=== PATIENT | female | born 1980 | race Caucasian/White ===

== ENCOUNTER 2021-01-04 21:31 | Emergency (ER) | payer MEDICAID ==
[~2021-01-04] VITALS: Ht 165.1 cm; Wt 101.2 kg
[2021-01-04 21:38] VITALS: BP 136/91
--- NOTE | 2021-01-04 21:45 | NUR ---
patient to bed 7 ambulatory with urine cup in hand for urince collection.
--- NOTE | 2021-01-04 21:50 | NUR ---
patient c/o right breast pain x5 days ago. today and yesterday the pain has increased. took tylenol for pain with some relief. denies breast feeding. patient's areola swollen, warm, and red at the site. 8/10 pain- sore and feels like pins and needles, and itchy.
[2021-01-04] MEDS ORDERED: [UNRECOGNIZED DRUG - CODE] TP (22:01)
[2021-01-04] MEDS ORDERED: DOXY-487 PO (22:01)
--- NOTE | 2021-01-04 22:06 | NUR ---
Patient discharged by Dr Harkins. Rx of Benzoyl peroxide and Doxycycline hyclate given
[2021-01-04 22:07] VITALS: BP 136/91
== END 2021-01-04 22:06 | disposition home or self-care (01) ==
LOC: MED 21:31
DX: L73.9 Follicular disorder, unspecified (principal); N64.4 Mastodynia; Z90.49 Acquired absence of other specified parts of digestive tract; Z98.890 Other specified postprocedural states; Z79.2 Long term (current) use of antibiotics; Z79.899 Other long term (current) drug therapy
CPT/HCPCS: 99283

== ENCOUNTER 2021-01-07 12:24 | Emergency (ER) | payer MEDICAID ==
[~2021-01-07] VITALS: Ht 165.1 cm; Wt 131.5 kg
[~2021-01-07 12:24] MED LIST: DOXY-487 PO; [UNRECOGNIZED DRUG - CODE] TP
[2021-01-07 12:33] VITALS: BP 161/96
--- NOTE | 2021-01-07 14:22 | NUR ---
GRACIE LUI AT BEDSIDE
[2021-01-07] MEDS ORDERED: KETOROLAC 30 MG/ML VIAL IM ONE (14:35)
[2021-01-07] MEDS ORDERED: ACET-8386 PO (14:37)
[2021-01-07] MEDS ORDERED: BACTO TP (14:37)
[2021-01-07 14:59] VITALS: BP 161/96
--- NOTE | 2021-01-07 15:02 | NUR ---
Patient discharged with v/s stable. Written and verbal after care instructions given and explained. Patient alert, oriented and verbalized understanding of instructions. Ambulatory with steady gait. All questions addressed prior to discharge. ID band removed. Patient advised to follow up with PMD. Rx of HYDROCODONE, MUPIROCIN (SENT) given. Patient educated on indication of medication including possible reaction and side effects. Opportunity to ask questions provided and answered.
--- NOTE | 2021-01-07 15:11 | NUR ---
40 Y/O F BIB SELF FROM HOME, C/O RIGHT BREAST PAIN (STABBING) WITH REDNESS & SWELLING FOR 1 WK IN AREA. PT WAS PREVIOUSLY SEEN HERE 3 DAYS AGO AND WAS RX VIBRAMYCIN. DENIES N/V/D; SKIN IS PINK/WARM/DRY; AAOX4 WITH EVEN AND STEADY GAIT; LUNGS CLEAR BL; HR EVEN AND REGULAR; PT DENIES ANY FEVER, SOB, OR COUGH AT THIS TIME; PATIENT STATES PAIN OF 5/10 AT THIS TIME; PATIENT POSITIONED FOR COMFORT; HOB ELEVATED; BEDRAILS UP X2; BED DOWN. ER MD MADE AWARE OF PT STATUS. ALLERGY: PENICILLIN
--- NOTE | 2021-01-07 18:03 | NUR ---
The patient's care was reviewed and supervised by Carlota Mcknight RN.
== END 2021-01-07 14:59 | disposition home or self-care (01) ==
LOC: MED 12:24
DX: N61.0 Mastitis without abscess (principal); Z79.891 Long term (current) use of opiate analgesic; Z79.899 Other long term (current) drug therapy; Z79.2 Long term (current) use of antibiotics; Z88.0 Allergy status to penicillin
CPT/HCPCS: 81025; 96372; 99283; J1885

== ENCOUNTER 2021-01-11 09:19 | Inpatient (IN) | payer MEDICAID, SELFPAY ==
[~2021-01-11] VITALS: Ht 172.7 cm; Wt 94.3 kg
[~2021-01-11 09:19] MED LIST changes: +ACET-8386 PO; +BACTO TP
[2021-01-11 09:22] VITALS: BP 143/95
--- NOTE | 2021-01-11 09:30 | NUR ---
PT AMBULATED TO BED, STEADY GAIT
--- NOTE | 2021-01-11 09:39 | NUR ---
40 Y/O FEMALE C/O RIGHT BREAST PAIN 11/25 DESCRIBES ACHING X2 WEEKS. PT STATES REDNESS AND BUMP TO AREA. DENIES ANY DISCHARGE. WAS SEEN HERE ON THURSDAY USING CREAM AND NORCO PRESCRIBED WITH LITTLE RELIEF. HAD FEVER 101F LAST NIGHT TOOK IBUPROFEN. STATES +N/V. DENIES PMH ALLERGIES: PCN
[2021-01-11] MEDS ORDERED: NACL 0.9% 1,000 ML IV SCH ×2 (09:50→11:50)
[2021-01-11] MEDS ORDERED: VANCOMYCIN 1,000 MG in DEXTROSE 5% 250 ML IV ONE (09:50)
[2021-01-11] MEDS ORDERED: KETOROLAC 30 MG/ML VIAL IVP ONE (09:50)
[2021-01-11] MEDS ORDERED: VANCOMYCIN 1,000 MG VIAL ONE (09:52)
--- NOTE | 2021-01-11 09:54 | NUR ---
METAL BONDING ASSEMBLER AT PT BEDSIDE.
--- NOTE | 2021-01-11 10:01 | NUR ---
MED REC COMPLETED FOR PATIENT
--- NOTE | 2021-01-11 10:04 | NUR ---
IV ESTABLISHED TO RIGHT AC 20G, GOOD BLOOD RETURN, COLLECTED BLOOD WALKED TO LAB.
--- NOTE | 2021-01-11 10:18 | NUR ---
OSCAR GONSALEZ WALKED TO LAB.
[2021-01-11 10:29] LABS: BASOPHILS # (AUTO) 0.2 K/uL (0.00-0.22); BASOPHILS % (AUTO) 2.7 % (0.0-2.0); EOSINOPHILS # (AUTO) 0.2 K/uL (0-0.4); EOSINOPHILS % (AUTO) 3.2 % (0.0-4.0); HEMATOCRIT 36.8 % (36-48); HEMOGLOBIN 12.7 g/dL (12.0-16.0); LYMPHOCYTES # (AUTO) 1.1 K/uL (2.5-16.5); MEAN CORPUSCULAR HEMOGLOBIN 34 pg (27-31); MEAN CORPUSCULAR HGB CONC 35 g/dL (33-37); MEAN CORPUSCULAR VOLUME 98.8 fL (80-94); MONOCYTES # (AUTO) 0.3 K/uL (0.8-1.0); MONOCYTES % (AUTO) 4.2 % (1.7-9.3); NEUTROPHILS # (AUTO) 5.7 K/uL (1.8-7.7); NEUTROPHILS % (AUTO) 74.9 % (42.2-75.2); PLATELET COUNT (AUTO) 273 K/uL (140-450); RED BLOOD CELL COUNT(AUTO) 3.73 MIL/uL (4.20-5.40); RED CELL DISTRIBUTION WIDTH 12.6 % (11.6-13.7); WHITE BLOOD COUNT (AUTO) 7.7 K/uL (4.8-10.8)
[2021-01-11 10:57] LABS: ALBUMIN 3.7 g/dL (3.4-5.0); ANION GAP 16.2 (8-16); CARBON DIOXIDE 25.5 mmol/L (21-32); CREATININE 0.7 mg/dL (0.6-1.3); POTASSIUM 3.7 mmol/L (3.5-5.1); TOTAL BILIRUBIN 0.2 mg/dL (0.0-1.0)
[2021-01-11] MEDS ORDERED: NACL 0.9% 1,000 ML IV ONE (11:05)
--- NOTE | 2021-01-11 11:14 | NUR ---
GAVE REPORT TO CAR HEAD FOR PENDING ADMISSION. ETA 10 MINUTES.
--- NOTE | 2021-01-11 11:14 | NUR ---
RECEIVED PHONE REPORT FROM ER NURSE. WAITING PT TO TRANSFER TO UNIT.
--- NOTE | 2021-01-11 11:31 | NUR ---
Patient will be admitted to care of DR. MCKEON. Admited to [facility]. Will go to room 104B. Belongings list completed. Report to CAR HEAD .
[2021-01-11 11:50] VITALS: BP 111/63
[2021-01-11] MEDS ORDERED: ONDANSETRON 4 MG/2 ML VIAL IM/IVP PRN (11:50)
[2021-01-11] MEDS ORDERED: POTASSIUM CHLORIDE 10 MEQ TABER PO PRN (11:50)
[2021-01-11] MEDS ORDERED: ACETAMINOPHEN 325 MG TAB PO PRN (11:50)
[2021-01-11] MEDS ORDERED: guaiFENesin DM 200/20 MG-10 ML 10 ML UDC PO PRN (11:50)
[2021-01-11] MEDS ORDERED: ZOLPIDEM 5 MG TAB PO PRN (11:50)
--- NOTE | 2021-01-11 11:50 | NUR ---
RECEIVED PATIENT TO UNIT. CC RIGHT BREAST PAIN X2 WEEKS. DX MASTITIS. A/A/O X4. RESPIRATORY EVEN AND UNLABORED, ON ROOM AIR, LUNG SOUND CLEAR TO AUSCULTATE. NO SIGN OF DISTRESS NOTED. SKIN WARM, DRY, NON DIAPHORETIC. IV ON RIGHT AC 20G, INTACT AND PATENT. RIGHT BREAST REDNESS AND SWOLLEN, TENDER TO TOUCH. S1 AND S2 NOTED, NO MURMUR. BOWEL SOUND ACTIVE TO 4 QUADRANTS. PATIENT REPORTS BURNING PAIN 2/10 ON HER RIGHT BREAST, PAIN TOLERABLE. ABLE TO MAKE NEED KNOWN. ORIENTED TO ROOM AND UNIT. MRSA COLLECTED. PLAN OF CARE DISCUSSED, PATIENT VERBALIZED UNDERSTANDING. CALL LIGHT WITHIN REACH. WILL CONTINUE TO MONITOR.
--- NOTE | 2021-01-11 12:30 | NUR ---
DR MCKEON AT BEDSIDE FOR ASSESSMENT.
[2021-01-11 12:35] LABS: CHOL/HDL RATIO 4.6 (1-4.5); MAGNESIUM 2.1 mg/dL (1.8-2.4); PHOSPHORUS 3.5 mg/dL (2.5-4.9)
[2021-01-11 12:48] LABS: PROTHROMBIN TIME 9.4 secs (10.8-13.4)
[2021-01-11 13:00] LABS: FREE T4 (FREE THYROXINE) 0.79 ng/dL (0.76-1.46); THYROID STIMULATING HORMONE 3.31 uIU/mL (0.34-3.74)
[2021-01-11] MEDS: CLINDAMYCIN 600 MG in DEXTROSE 5% 50 ML IV SCH ×2 (13:06→20:22)
--- NOTE | 2021-01-11 13:06 | NUR ---
SCHEDULE MEDICATION GIVEN WITH EDUCATION, PATIENT VERBALIZED UNDERSTANDING. PATIENT TOLERATED WELL. CALL LIGHT WITHIN REACH, WILL CONTINUE TO MONITOR.
[2021-01-11 13:13] LABS: BARBITURATE, URINE NEGATIVE ng/ml (NEG <=200); BENZODIAZEPINE, URINE NEGATIVE ng/mL (NEG <=200); CANNABINOID, URINE POSITIVE ng/mL (NEG <=50); COCAINE, URINE NEGATIVE ng/mL (NEG <=300); OPIATE, URINE NEGATIVE ng/mL (NEG <=2000); PHENCYCLIDINE SCREEN,URINE NEGATIVE ng/mL (NEG <=25)
[2021-01-11] MEDS: LEVOFLOXACIN 750 MG/D5W PREMIX 150 ML IV SCH (14:14)
--- NOTE | 2021-01-11 14:21 | NUR ---
SCHEDULE MEDICATION GIVEN WITH EDUCATION. PATIENT VERBALIZED UNDERSTANDING. PATIENT TOLERATED WELL, NO SIGN OF DISTRESS NOTED. CALL LIGHT WITHIN REACH. WILL CONTINUE TO MONITOR.
[2021-01-11] MEDS: HYDROcodone/APAP 7.5/325 MG 1 TAB PO PRN ×2 (15:42→20:37)
--- NOTE | 2021-01-11 15:42 | NUR ---
PT COMPLAINS BURNING PAIN 6/10 ON RIGHT BREAST. PRN MEDICATION FOR PAIN GIVEN WITH EDUCATION. PATIENT VERBALIZED UNDERSTANDING. CALL LIGHT WITHIN REACH. WILL CONTINUE TO MONITOR.
[2021-01-11 16:00] VITALS: BP 118/59
--- NOTE | 2021-01-11 19:06 | NUR ---
ENDORSED PATIENT TO LEGAL AID NURSE FOR CONTINUITY OF CARE. PATIENT IS STABLE.
--- NOTE | 2021-01-11 19:07 | NUR ---
RECEIVED PATIENT FROM DAY SHIFT NURSE FOR CONTINUITY OF CARE. AWAKE, ALERT AND ORIENTED. RESPIRATORY EVEN AND UNLABORED, ON ROOM AIR.NO SIGN OF DISTRESS NOTED. SKIN WARM, DRY. IV ON RIGHT AC 20G, INTACT AND PATENT. RIGHT BREAST REDNESS AND SWOLLEN.CALL LIGHT WITHIN REACH. WILL CONTINUE TO MONITOR.
[2021-01-11 20:00] VITALS: BP 133/70
--- NOTE | 2021-01-11 20:30 | NUR ---
DUE MEDICATIONS GIVEN. PT TOLERATED WELL.CALL LIGHT WITHIN REACH. WILL CONTINUE TO MONITOR.
--- NOTE | 2021-01-11 20:40 | NUR ---
PT COMPLAINED OF 6/10 PAIN ON HER RIGHT BREAST.PRN NORCO GIVEN.CALL LIGHT WITHIN REACH. WILL CONTINUE TO MONITOR.
[2021-01-11 21:58] LABS: APPEARANCE,URINE CLEAR (CLEAR); BILIRUBIN,URINE NEGATIVE (NEGATIVE); BLOOD, URINE 2+ (NEGATIVE); COLOR,URINE YELLOW (YELLOW); LEUKOCYTE ESTERASE ,URINE NEGATIVE (NEGATIVE); NITRITE, URINE NEGATIVE (NEGATIVE); UGLUCOSE NEGATIVE (NEGATIVE)
[2021-01-11 22:11] LABS: RBC,URINE 0-5 /HPF (0-5); WBC,URINE 0-5 /HPF (0-5)
--- NOTE | 2021-01-11 22:45 | NUR ---
URINE SAMPLE COLLECTED. PT HAS NO COMPLAINS AT THIS TIME. ALL NEEDS MET. CALL LIGHT WITHIN REACH. WILL CONTINUE TO MONITOR.
[2021-01-12] MEDS: HYDROcodone/APAP 7.5/325 MG 1 TAB PO PRN ×5 (01:57→21:16)
--- NOTE | 2021-01-12 02:00 | NUR ---
PT COMPLAINED OF 6/10 PAIN ON HER RIGHT BREAST.PRN NORCO GIVEN.CALL LIGHT WITHIN REACH. WILL CONTINUE TO MONITOR.
--- NOTE | 2021-01-12 03:40 | NUR ---
PT ASLEEP. BREATHING EQUAL AND UNLABORED. NO S/SX OF DISTRESS. CALL LIGHT WITHIN REACH. WILL CONTINUE TO MONITOR.
[2021-01-12 04:00] VITALS: BP 103/52
--- NOTE | 2021-01-12 05:10 | NUR ---
SCHEDULED ANTIBIOTICS GIVEN. PT TOLERATED WELL. NO S/SX OF DISTRESS. DENIES PAIN. CALL LIGHT WITHIN REACH. WILL CONTINUE TO MONITOR.
[2021-01-12] MEDS: CLINDAMYCIN 600 MG in DEXTROSE 5% 50 ML IV SCH ×3 (05:11→21:00)
[2021-01-12 06:24] LABS: BASOPHILS % (AUTO) 0.5 % (0.0-2.0); EOSINOPHILS # (AUTO) 0.2 K/uL (0-0.4); EOSINOPHILS % (AUTO) 2.3 % (0.0-4.0); HEMOGLOBIN 11.6 g/dL (12.0-16.0); LYMPHOCYTES # (AUTO) 2.6 K/uL (2.5-16.5); LYMPHOCYTES % (AUTO) 31.9 % (20.5-51.1); MEAN CORPUSCULAR HEMOGLOBIN 34 pg (27-31); MEAN CORPUSCULAR HGB CONC 34 g/dL (33-37); MEAN CORPUSCULAR VOLUME 98.5 fL (80-94); MONOCYTES # (AUTO) 0.7 K/uL (0.8-1.0); MONOCYTES % (AUTO) 8.7 % (1.7-9.3); NEUTROPHILS # (AUTO) 4.6 K/uL (1.8-7.7); NEUTROPHILS % (AUTO) 56.6 % (42.2-75.2); PLATELET COUNT (AUTO) 244 K/uL (140-450); RED BLOOD CELL COUNT(AUTO) 3.45 MIL/uL (4.20-5.40); RED CELL DISTRIBUTION WIDTH 12.2 % (11.6-13.7); WHITE BLOOD COUNT (AUTO) 8.1 K/uL (4.8-10.8)
[2021-01-12 06:30] LABS: ANION GAP 12.9 (8-16); CARBON DIOXIDE 24.9 mmol/L (21-32); CREATININE 0.6 mg/dL (0.6-1.3); POTASSIUM 3.8 mmol/L (3.5-5.1)
--- NOTE | 2021-01-12 06:37 | NUR ---
PT STABLE.NO ACUTE EVENTS THROUGHOUT THE NIGHT.NO S/SX OF DISTRESS. NO COMPLAINS AT THIS TIME. ALL NEEDS ATTENDED.CALL LIGHT WITHIN REACH. WILL ENDORSE TO AM SHIFT NURSE.
--- NOTE | 2021-01-12 06:52 | NUR ---
PATIENT HAS BEEN SCREENED AND CATEGORIZED LOW NUTRITION RISK. PATIENT WILL BE SEEN WITHIN 7 DAYS OF ADMISSION. 01/18/21 ASHU VILLANUEVA MS, RDN
--- NOTE | 2021-01-12 07:18 | NUR ---
PT ENDORSED TO AM SHIFT NURSE FOR CONTINUITY OF CARE. PT IS STABLE.
--- NOTE | 2021-01-12 07:26 | NUR ---
RECEIVED REPORT FROM PM SHIFT RN. PATIENT IS ALERT ORIENTED X4, IN STABLE CONDITION. NO RESP. DISTRESS OR SOB NOTED ON ROOM AIR. NO C/O PAIN AT THIS TIME. ALL SAFETY MEASURES IN PLACE. WILL CONTINUE TO MONITOR THE PATIENT AND FOLLOW UP.
[2021-01-12 08:00] VITALS: BP 117/74
[2021-01-12] MEDS: PANTOPRAZOLE 40 MG TABEC PO SCH (08:07)
--- NOTE | 2021-01-12 08:12 | NUR ---
PT STATES SHE HAS PAIN AT A SCALE OF 6/10 ON THE RIGHT BREAST. AREOLA IS RED AND SWOLLEN. PT STATES THE PAIN ACHING. PT WAS GIVEN NORCO FOR PAIN.
--- NOTE | 2021-01-12 10:09 | NUR ---
PT IS SLEEPING. NO DISTRESS NOTED. ON RA WITH BREATHING UNLABORED. NO PAIN APPARENT AT THIS TIME. BED IS IN THE LOWEST POSITION AND CALL LIGHT WITHIN REACH.
--- NOTE | 2021-01-12 11:00 | NUR ---
MADE ROUND AND CHECKED ON PATIENT, COMFORTABLY SLEEPING IN BED. NOT IN DISTRESS, RESP. EVEN AND UNLABORED. ALL SAFETY MEASURES IN PLACE. CALL LIGHT WITHIN REACH.WILL CONTINUE TO MONITOR THE PATIENT.
--- NOTE | 2021-01-12 12:15 | NUR ---
ADMINISTERED ABX DUE . PIV PATENT AND GOOD BLOOD RETURNED. PATIENT TOLERATED WELL.ALSO PATIENT C/O PAIN 6/10 ON RIGHT BREAST. MEDICATED WITH PAIN MEDICATION PRN ORDER. V/S CHECKED PRIOR TO GIVE PAIN MEDICATION ,V/S WNL.ALL SAFETY MEASURES APPLIED. CALL LIGHT WITHIN REACH. WILL REASSESS FOR PAIN FOR EFFECTIVENESS AND CONTINUE TO MONITOR THE PATIENT.
[2021-01-12] MEDS: LEVOFLOXACIN 750 MG/D5W PREMIX 150 ML IV SCH (13:22)
--- NOTE | 2021-01-12 13:22 | NUR ---
REASSED FOR PAIN AND EFFECTIVENESS OF PAIN MEDICATION. PATIENT VERBALIZED NO ANY MORE PAIN AT THIS TIME (0/10).ALSO ADMINISTERED ABX DUE. PATIENT TOLERATED WELL. PATIENT STABLE AND SITTING IN THE BED. TALKING TO THE FAMILY AT BEDSIDE. ALL SAFETY MEASURES APPLIED . WILL CONTINUE TO MONITOR THE PATIENT.
--- NOTE | 2021-01-12 15:09 | NUR ---
patient comfortably resting. no resp. distress observed. breathing even and unlabored. stable on room air. all safety measures in place. continue monitoring .
[2021-01-12] MEDS ORDERED: POTASSIUM CHLORIDE 10 MEQ TABER PO PRN (15:25)
[2021-01-12] MEDS ORDERED: MAG SULF 2000 MG/WATER PREMIX 50 ML IV PRN (15:25)
[2021-01-12 16:00] VITALS: BP 122/71
--- NOTE | 2021-01-12 17:03 | NUR ---
PT IS STATING SHE HAS PAIN AT A SCALE OF 6/10 IN THE RIGHT BREAST. PT WAS GIVEN NORCO FOR PAIN. WILL CONTINUE TO MONITOR PAIN.
--- NOTE | 2021-01-12 18:25 | NUR ---
MADE ROUND AND CHECKED ON PATIENT . PATIENT COMFORTABLE AND DENIES PAIN AT THIS TIME.RESP. STATUS NORMAL. NO RESP. DISTRESS OBSERVED. ALL SAFETY MEASURE PROVIDED. EDUCATION PROVIDED. VERBALIZED UNDERSTANDING.WILL CONTINUE TO MONITOR THE PATIENT
[2021-01-12] MEDS: DOCUSATE SODIUM 100 MG GELCAP PO PRN (19:04)
--- NOTE | 2021-01-12 19:04 | NUR ---
PT STATES SHE IS FEELING CONSTIPATED AND WAS GIVEN COLACE REQUESTED. WILL ENDORSE TO GAS GENERATOR OPERATOR NURSE TO MONITOR FOR CONSTIPATION.
--- NOTE | 2021-01-12 19:05 | NUR ---
RECEIVED REPORT FROM MORNING SHIFT OF CONTINUITY OF CARE. PATIENT IS STABLE IS STABLE IN BED. A&OX4 VERBALLY RESPONSIVE AND ABLE TO COMMUNICATE NEEDS. DENIES PAIN AT THIS TIME. NO APPARENT S/SX OF ACUTE DISTRESS. BREATHING EVEN AND UNLABORED. ON ROOM AIR. RIGHT AC 20G SL PATENT/INTACT. SKIN IS INTACT. PATIENT IS NPO AFTER MIDNIGHT FOR A RIGHT BREAST I&D TOMORROW AT 0730. PATIENT IS AMBULATORY. PLAN OF CARE AND WHITE COMMUNICATION BOARD UPDATED. BED IN LOW/LOCKED POSITION. DAUGHTER PRESENT AT BEDSIDE. CALL LIGHT WITHIN REACH. ENCOURAGED PATIENT TO CALL FOR ANY NEEDS/ASSISTANCE. WILL CONTINUE TO MONITOR. Addendum: 01/13/21 at 0210 by Joseph Mcgraw LVN TIME: 1927
--- NOTE | 2021-01-12 19:27 | NUR ---
REPORT GIVEN TO PM SHIFT JIM WREN FOR CONTINUITY CARE . PATIENT IN STABLE CONDITION ,ENDORSED REGARDING PROCEDURE I&D TOMORROW, AND NPO FROM MIDNIGHT.
--- NOTE | 2021-01-12 21:02 | NUR ---
ANSWERED CALL LIGHT. PATIENT C/O ABD PAIN 07/26. WILL ADMINISTER PRN PER MD ORDER.
--- NOTE | 2021-01-12 23:05 | NUR ---
CHECKED PATIENT. STABLE AND ASLEEP. CHEST RISING AND FALLING. RESPIRATIONS EVEN AND UNLABORED. NO APPARENT S/SX OF ACUTE DISTRESS. WHITE COMMUNICATION BOARD UPDATED. ALL SAFETY MEASURES IN PLACE. CALL LIGHT WITHIN REACH. WILL CONTINUE TO MONITOR.
--- NOTE | 2021-01-13 01:05 | NUR ---
ROUNDED ON PATIENT. STABLE AND ASLEEP. CHEST RISING AND FALLING. RESPIRATIONS EVEN AND UNLABORED. NO APPARENT S/SX OF ACUTE DISTRESS. WHITE COMMUNICATION BOARD UPDATED. ALL SAFETY MEASURES IN PLACE. CALL LIGHT WITHIN REACH. WILL CONTINUE TO MONITOR.
[2021-01-13 04:00] VITALS: BP 113/57
--- NOTE | 2021-01-13 05:05 | NUR ---
EDUCATED PATIENT ON THE USE OF CHLORHEXIDINE PRIOR TO PROCEDURE. PATIENT VERBALIZED UNDERSTANDING. PATIENT DENIES PAIN AT THIS TIME. RESPIRATIONS EVEN AND UNLABORED. NO APPARENT S/SX OF ACUTE DISTRESS. WHITE BOARD COMMUNICATION UPDATED. ALL SAFETY MEASURES IN PLACE. CALL LIGHT WITHIN REACH. WILL CONTINUE TO MONITOR.
[2021-01-13] MEDS: CLINDAMYCIN 600 MG in DEXTROSE 5% 50 ML IV SCH ×3 (05:23→21:00)
--- NOTE | 2021-01-13 06:10 | NUR ---
Patient's Plan of Care was discussed and reviewed with CREDIT CONTROL ADMINISTRATOR: Margarita DA SILVA
[2021-01-13 06:52] LABS: BASOPHILS % (AUTO) 0.4 % (0.0-2.0); EOSINOPHILS # (AUTO) 0.2 K/uL (0-0.4); LYMPHOCYTES # (AUTO) 2.6 K/uL (2.5-16.5); LYMPHOCYTES % (AUTO) 30.9 % (20.5-51.1); MEAN CORPUSCULAR HEMOGLOBIN 34 pg (27-31); MEAN CORPUSCULAR HGB CONC 34 g/dL (33-37); MEAN CORPUSCULAR VOLUME 98.5 fL (80-94); MONOCYTES # (AUTO) 0.8 K/uL (0.8-1.0); MONOCYTES % (AUTO) 9.8 % (1.7-9.3); NEUTROPHILS # (AUTO) 4.8 K/uL (1.8-7.7); NEUTROPHILS % (AUTO) 56.9 % (42.2-75.2); PLATELET COUNT (AUTO) 267 K/uL (140-450); RED BLOOD CELL COUNT(AUTO) 3.55 MIL/uL (4.20-5.40); RED CELL DISTRIBUTION WIDTH 12.2 % (11.6-13.7); WHITE BLOOD COUNT (AUTO) 8.4 K/uL (4.8-10.8)
--- NOTE | 2021-01-13 07:05 | NUR ---
ENDORSED PATIENT TO AM SHIFT NURSE FOR CONTINUITY OF CARE. PATIENT IS STABLE.
--- NOTE | 2021-01-13 07:10 | NUR ---
RECEIVED BEDSIDE REPORT FROM DIETARY ASSISTANT NURSE FOR CONTINUITY OF CARE. PT IS AWAKE AND ALERT. A&OX4. ON RA WITH BREATHING UNLABORED. AMBULATORY INDEPENDENTLY. SKIN IS WARM AND DRY. RIGHT BREAST ABSCESS, SCHEDULED FOR I&D AT 730 AM TODAY. PT IS STABLE. DENIES PAIN. PLAN OF CARE DISCUSSED.
[2021-01-13 07:16] LABS: ANION GAP 13.9 (8-16); CARBON DIOXIDE 26.1 mmol/L (21-32); CREATININE 0.8 mg/dL (0.6-1.3)
[2021-01-13] MEDS ORDERED: PROPOFOL 200 MG/20 ML VIAL IV ONE (07:32)
[2021-01-13] MEDS ORDERED: fentaNYL citrate 0.05 MG/ML VIAL ONE (07:32)
[2021-01-13] MEDS ORDERED: ONDANSETRON 4 MG/2 ML VIAL ONE (07:32)
[2021-01-13] MEDS ORDERED: KETOROLAC 30 MG/ML VIAL ONE (07:32)
[2021-01-13] MEDS ORDERED: DEXAMETHASONE 4 MG/ML VIAL ONE (07:32)
[2021-01-13] MEDS ORDERED: LIDOCAINE 1% 500 MG/50 ML VIAL ONE (07:42)
[2021-01-13] MEDS ORDERED: BUPIVACAINE-MPF/EPI 0.25% 30 ML VIAL INJ ONE (07:42)
[2021-01-13] MEDS ORDERED: DESFLURANE 240 ML BTL INH ONE (07:56)
[2021-01-13] MEDS ORDERED: HYDROmorphone PFS 2 MG/ML SYR ONE (08:11)
[2021-01-13] MEDS ORDERED: HYDROmorphone 1 MG/ML AMP IVP PRN (08:25)
[2021-01-13] MEDS ORDERED: MORPHINE SULFATE 4 MG/ML SYR IV PRN (08:25)
[2021-01-13] MEDS ORDERED: MORPHINE SULFATE 2 MG/ML SYR IVP PRN (08:25)
[2021-01-13] MEDS ORDERED: ONDANSETRON 4 MG/2 ML VIAL IVP PRN (08:40)
--- NOTE | 2021-01-13 09:15 | NUR ---
PT ARRIVED BACK FROM THE OR WITH TWO OR NURSES. PT IS AWAKE AND ALERT. A&OX4. ON RA WITH BREATHING UNLABORED. RIGHT BREAST 1&D WITH PACKING AND CLEAR DRESSING OVER AREOLA. PT DENIES PAIN AT THIS TIME. VS ARE STABLE. WILL CONTINUE TO MONITOR PT.
[2021-01-13] MEDS: PANTOPRAZOLE 40 MG TABEC PO SCH (09:59)
--- NOTE | 2021-01-13 11:00 | NUR ---
POST OP VITAL SIGNS COMPLETE AND PLACED IN FRONT OF CHART. VS ARE ALL STABLE. NO DISTRESS NOTED ON RA. PT DENIES PAIN. PT IS GOING TO SLEEP AND STABLE.
--- NOTE | 2021-01-13 12:39 | NUR ---
PT IS UP TO THE RESTROOM. PT VOIDED IN RESTROOM. NO DISTRESS NOTED. IV IS PATENT AND INFUSING ABX ORDERED. PT IS STABLE. WILL CONTINUE TO MONITOR.
[2021-01-13] MEDS: LEVOFLOXACIN 750 MG/D5W PREMIX 150 ML IV SCH (13:28)
--- NOTE | 2021-01-13 14:30 | NUR ---
PT IS SLEEPING. CHEST RISE AND FALL SYMMETRICAL. NO DISTRESS NOTED. NO PAIN APPARENT. PT IS STABLE. WILL MONITOR.
[2021-01-13] MEDS ORDERED: VANCOMYCIN PER PHARMACY MC PRN (15:05)
[2021-01-13] MEDS: VANCOMYCIN 1,000 MG in DEXTROSE 5% 250 ML IV SCH (16:18)
--- NOTE | 2021-01-13 16:30 | NUR ---
ROUNDED ON PT. SHE IS TALKING TO FAMILY AT BEDSIDE. PT DENIES PAIN. BANDAGE IN PLACE ON THE RIGHT BREAST DRY AND INTACT. MINIMAL SANGUINEOUS DRAINAGE ON BANDAGE. PT IS STABLE.
--- NOTE | 2021-01-13 18:21 | NUR ---
IV IN THE RIGHT AC WAS BLEEDING. IV WAS REMOVED. BLEEDING CONTROLLED. NEW IV PLACED BY TUSHAR CALZADA RN IN THE RIGHT HAND 22 GAUGE SALINE LOCKED.
--- NOTE | 2021-01-13 19:10 | NUR ---
ENDORSED PT TO MALL MANAGER NURSE FOR CONTINUITY OF CARE. PT IS STABLE. PLAN OF CARE DISCUSSED.
--- NOTE | 2021-01-13 19:11 | NUR ---
RECEIVED REPORT FROM MORNING SHIFT OF CONTINUITY OF CARE. PATIENT IS STABLE IS STABLE IN BED. A&OX4 VERBALLY RESPONSIVE AND ABLE TO COMMUNICATE NEEDS. PATIENT C/O PAIN 6/10 IN UPPER BODY AREA. WILL ADMINISTER PRN PER MD ORDER. NO APPARENT S/SX OF ACUTE DISTRESS. BREATHING EVEN AND UNLABORED. ON ROOM AIR. RIGHT AC 20G SL PATENT/INTACT. SKIN IS INTACT. PATIENT REPORTS I&D WAS SUCCESSFUL. PATIENT IS AMBULATORY. PLAN OF CARE AND WHITE COMMUNICATION BOARD UPDATED. BED IN LOW/LOCKED POSITION. DAUGHTER PRESENT AT BEDSIDE. CALL LIGHT WITHIN REACH. ENCOURAGED PATIENT TO CALL FOR ANY NEEDS/ASSISTANCE. WILL CONTINUE TO MONITOR.
[2021-01-13 20:00] VITALS: BP 148/86
[2021-01-13] MEDS: DOCUSATE SODIUM 100 MG GELCAP PO PRN (20:32)
[2021-01-13] MEDS: HYDROcodone/APAP 5/325 MG 1 TAB TAB PO PRN (20:32)
--- NOTE | 2021-01-13 20:32 | NUR ---
ADMINISTERED SCHEDULED MEDICATIONS PER MD ORDER. PT TOLERATED WELL. NO AR NOTED AT THIS TIME. PRN NORCO GIVEN FOR PAIN. WILL REASSESS IN AN HOUR. RESPIRATIONS EVEN AND UNLABORED. NO APPARENT S/SX OF ACUTE DISTRESS. WHITE BOARD COMMUNICATION UPDATED. ALL SAFETY MEASURES IN PLACE. CALL LIGHT WITHIN REACH. WILL CONTINUE TO MONITOR.
--- NOTE | 2021-01-13 22:02 | NUR ---
ANSWERED CALL LIGHT. PATIENT'S IV MACHINE IS BEEPING. WILL ENDORSE TO CAR WAY TO FIX THE SETTINGS FOR THE IV ANTIBIOTICS.
[2021-01-14] MEDS: VANCOMYCIN 1,000 MG in DEXTROSE 5% 250 ML IV SCH ×2 (00:44→08:29)
--- NOTE | 2021-01-14 00:44 | NUR ---
SCHEDULED ANTIBIOTICS GIVEN. PT TOLERATED WELL. NO ACUTE DRUG REACTION NOTED.NO APPARENT S/SX OF ACUTE DISTRESS.ALL SAFETY MEASURES IN PLACE. CALL LIGHT WITHIN REACH. WILL CONTINUE TO MONITOR.
--- NOTE | 2021-01-14 02:40 | NUR ---
CHECKED PT. STABLE AND ASLEEP COMFORTABLY. CHEST RISING AND FALLING. RESPIRATIONS EVEN AND UNLABORED. NO APPARENT S/SX OF ACUTE DISTRESS. WHITE COMMUNICATION BOARD UPDATED. ALL SAFETY MEASURES IN PLACE. CALL LIGHT WITHIN REACH. WILL CONTINUE TO MONITOR.
[2021-01-14 04:00] VITALS: BP 111/57
--- NOTE | 2021-01-14 04:38 | NUR ---
ROUNDED ON PT. STABLE AND ASLEEP COMFORTABLY. CHEST RISING AND FALLING. RESPIRATIONS EVEN AND UNLABORED. NO APPARENT S/SX OF ACUTE DISTRESS. WHITE COMMUNICATION BOARD UPDATED. ALL SAFETY MEASURES IN PLACE. CALL LIGHT WITHIN REACH. WILL CONTINUE TO MONITOR.
[2021-01-14] MEDS: CLINDAMYCIN 600 MG in DEXTROSE 5% 50 ML IV SCH ×2 (05:00→12:38)
--- NOTE | 2021-01-14 06:00 | NUR ---
ASSESSED PT'S SURGICAL SITE. INCISION IS PACKED WITH GAUZE AND TRANSPARENT ADHESIVE. PT VERBALIZED NEXT PLAN OF CARE WILL BE ON AN OUTPATIENT BASIS. PT DENIES PAIN AT THIS TIME. RESPIRATIONS EVEN AND UNLABORED. NO APPARENT S/SX OF ACUTE DISTRESS. WHITE BOARD COMMUNICATION UPDATED. ALL SAFETY MEASURES IN PLACE. CALL LIGHT WITHIN REACH. WILL CONTINUE TO MONITOR.
--- NOTE | 2021-01-14 07:01 | NUR ---
ENDORSED TO AM SHIFT FOR CONTINUITY OF CARE. PT IS STABLE.
--- NOTE | 2021-01-14 07:02 | NUR ---
RECEIVED REPORT FROM MISSING PERSONS INVESTIGATOR NURSE FOR CONTINUITY OF CARE. PATIENT IS IN BED WATCHING TELEVISION AT THIS TIME. RESPIRATIONS ARE EVEN AND UNLABORED. NO SIGNS OF DISTRESS NOTED. PATIENT IS ALERT AND ORIENTED X4. PATIENT IS ABLE TO VERBALIZE NEEDS TO STAFF. PATIENT IS ON ROOM AIR, WITH 02 SAT AT 98%. pATIENT IS ON REGULAR DIET. ABD IS SOFT, NON-TENDER, NONDISTENDED. PATIENT IS CONTINENT OF BOWEL AND BLADDER. PATIENT LAST BM WAS 01/14/21. PATIENT SKIN IS WARM AND DRY. PATIENT HAS IV TO R AC, 20G. PATIENT IV IS SALINE LOCKED. NO COMPLAINTS OF PAIN OR DISCOMFORT REPORTED AT THIS TIME. CALL LIGHT WITHIN REACH. ALL SAFETY MEASURES IN PLACE. WILL CONTINUE TO MONITOR
[2021-01-14 07:16] LABS: BASOPHILS % (AUTO) 0.5 % (0.0-2.0); EOSINOPHILS # (AUTO) 0.1 K/uL (0-0.4); EOSINOPHILS % (AUTO) 0.9 % (0.0-4.0); HEMATOCRIT 33.5 % (36-48); HEMOGLOBIN 11.6 g/dL (12.0-16.0); LYMPHOCYTES # (AUTO) 3.2 K/uL (2.5-16.5); LYMPHOCYTES % (AUTO) 35.4 % (20.5-51.1); MEAN CORPUSCULAR HEMOGLOBIN 34 pg (27-31); MEAN CORPUSCULAR HGB CONC 35 g/dL (33-37); MEAN CORPUSCULAR VOLUME 97.3 fL (80-94); MONOCYTES # (AUTO) 0.7 K/uL (0.8-1.0); MONOCYTES % (AUTO) 8.2 % (1.7-9.3); PLATELET COUNT (AUTO) 295 K/uL (140-450); RED BLOOD CELL COUNT(AUTO) 3.44 MIL/uL (4.20-5.40); RED CELL DISTRIBUTION WIDTH 12.2 % (11.6-13.7); WHITE BLOOD COUNT (AUTO) 9.1 K/uL (4.8-10.8)
[2021-01-14 07:34] LABS: CARBON DIOXIDE 22.6 mmol/L (21-32); CREATININE 0.8 mg/dL (0.6-1.3); POTASSIUM 3.6 mmol/L (3.5-5.1)
[2021-01-14 08:00] VITALS: BP 126/78
[2021-01-14] MEDS ORDERED: CEPH-588 PO (08:42)
[2021-01-14] MEDS ORDERED: PANT40EC56 PO (08:42)
[2021-01-14] MEDS: PANTOPRAZOLE 40 MG TABEC PO SCH (09:22)
--- NOTE | 2021-01-14 09:25 | NUR ---
ADMINISTERED ALL SCHEDULED MEDICATIONS. EDUCATED PATIENT ON MEDICATIONS BEING ADMINISTERED, WELL SIDE EFFECTS OF MEDICATIONS. PATIENT STATED AN UNDERSTANDING OF ALL INFORMATION PROVIDED. WILL CONTINUE TO MONITOR.
--- NOTE | 2021-01-14 10:25 | NUR ---
DISCHARGE ORDER IN PLACE. PATIENT STATES SHE SPOKE WITH DR MAI. WILL BEGIN DISCHARGE PAPERWORK.
--- NOTE | 2021-01-14 12:30 | NUR ---
DID ROUNDS ON PATIENT. PATIENT IN BED SLEEPING AT THIS TIME. RESPIRATIONS ARE EVEN AND UNLABORED. NO SIGNS OF DISTRESS NOTED. WILL CONTINUE TO MONITOR.
--- NOTE | 2021-01-14 14:12 | NUR ---
DC PLANN[age] YRS OLD FEMALE PATIENT WAS ADMITTED FROM HOME WITH A DX OF MASTITIS. PATIENT HAS NO MEDICAL HISTORY. PT HAS AN INFECTION ON HER RIGHT BREAST. CXR NEGATIVE . RIGHT BREAST US SHOWED ABSCESS ON RIGHT BREAST. CONSULTED WITH SURGEON DR GORE PERFORMED I&D OF RIGHT ABSCESS AND RIGHT CENTRAL BREAST PHLEGMON /MASS BIOPSY. ADMINISTERED IVF, IV ABX VANCOMYCIN AND CLINDAMYCIN. ID DR CASTILLO, FOLLOWING. DC PLAN TO GO HOME WHEN STABLE CM TO FOLLOW
[2021-01-14 14:22] VITALS: BP 126/78
--- NOTE | 2021-01-14 15:16 | NUR ---
WENT OVER DISCHARGE PAPERWORK WITH PATIENT. SPOUSE AT BEDSIDE. ANSWERED ALL QUESTIONS. PATIENT SIGNED ALL PAPERWORK.
[2021-01-14] MEDS: HYDROcodone/APAP 5/325 MG 1 TAB TAB PO PRN (15:46)
--- NOTE | 2021-01-14 15:52 | NUR ---
PATIENT DISCHARGED HOME WITH . IV CATHETER REMOVED. IV CATHETER INTACT. WRIST BAND REMOVED.
== END 2021-01-14 15:50 | disposition home or self-care (01) | DRG 385 ==
LOC: MED 09:19 → MMU 11:08 → MTU 11:31
PROVIDERS: ADMIT Family Medicine; ATTEND Family Medicine
PROC: 0H9T3ZX Drainage of Right Breast, Percutaneous Approach, Diagnostic (ICD-10-PCS; principal; 2021-01-13 07:30)
DX: N61.1 Abscess of the breast and nipple (principal); D64.9 Anemia, unspecified; E66.9 Obesity, unspecified; F12.90 Cannabis use, unspecified, uncomplicated; Z20.822 Contact with and (suspected) exposure to COVID-19; E78.2 Mixed hyperlipidemia; Z88.0 Allergy status to penicillin; Z79.899 Other long term (current) drug therapy; Z90.49 Acquired absence of other specified parts of digestive tract; Z68.31 Body mass index [BMI] 31.0-31.9, adult
CPT/HCPCS: 36415; 71045; 76641; 80048; 80053; 80202; 80305; 81001; 82150; 83036; 83605; 83690; 83735; 83880; 84100; 84436; 84439; 84443; 84479; 84484; 85025; 85610; 85730; 87040; 87070; 87075; 87081; 93005; 96365; 96375; 99285; J1100; J1170; J1644; J1885; J1956; J2001; J2405; J2704; J3010; J3370; J3490; J7060; J7120; Q0092

== ENCOUNTER 2021-08-16 09:59 | Emergency (ER) | payer MEDICAID ==
[~2021-08-16] VITALS: Ht 162.6 cm; Wt 95.3 kg
[~2021-08-16 09:59] MED LIST changes: -ACET-8386 PO; -BACTO TP; +CEPH-588 PO; -DOXY-487 PO; +PANT40EC56 PO; -[UNRECOGNIZED DRUG - CODE] TP
[2021-08-16 10:13] VITALS: BP 154/77
--- NOTE | 2021-08-16 11:31 | NUR ---
41 y/o female bib self with c/o right sided facial pain with numbness x 5 days. Patient denies any trauma or injury. Denies SOB, chest pain. Medical History: Anxiety, Depression ALLERGY: PENICILLIN
[2021-08-16] MEDS ORDERED: predniSONE 20 MG TAB PO ONE (11:40)
[2021-08-16] MEDS ORDERED: ACYCLOVIR 200 MG CAP PO ONE (11:40)
[2021-08-16] MEDS ORDERED: HYDROcodone/APAP 5/325 MG 1 TAB TAB PO ONE (11:40)
[2021-08-16 11:54] VITALS: BP 129/63
--- NOTE | 2021-08-16 11:59 | NUR ---
The patient's care was reviewed and supervised by [facility], RN.
[2021-08-16] MEDS ORDERED: PRED20TA5 PO (12:15)
[2021-08-16] MEDS ORDERED: ACYC-279 PO (12:15)
[2021-08-16] MEDS ORDERED: ACET-9527 PO ×2 (12:15→12:17)
[2021-08-16] MEDS ORDERED: ACET-8386 PO (12:16)
--- NOTE | 2021-08-16 12:28 | NUR ---
Patient discharged with v/s stable. Written and verbal after care instructions given and explained. Patient alert, oriented and verbalized understanding of instructions. Ambulatory with steady gait. All questions addressed prior to discharge. ID band removed. Patient advised to follow up with PMD. Rx of PREDNISONE, NORCO 5-325, ACYCLOVIR given. Patient educated on indication of medication including possible reaction and side effects. Opportunity to ask questions provided and answered.
== END 2021-08-16 12:27 | disposition home or self-care (01) ==
LOC: MED 09:59
DX: B02.9 Zoster without complications (principal); Z88.0 Allergy status to penicillin
CPT/HCPCS: 99284; J7512

== ENCOUNTER 2023-05-28 16:09 | Emergency (ER) | payer MEDICAID ==
[~2023-05-28] VITALS: Ht 165.1 cm; Wt 81.6 kg
[~2023-05-28 16:09] MED LIST changes: +ACET-9527 PO; +ACYC-279 PO; +PRED20TA5 PO
[2023-05-28 16:19] VITALS: BP 133/89; PULSE 87; RESP 18; TEMP 98.5; O2SAT 98
[2023-05-28 17:34] LABS: BASOPHILS # (AUTO) 0.1 K/uL (0.00-0.22); BASOPHILS % (AUTO) 0.6 % (0.0-2.0); EOSINOPHILS # (AUTO) 0.1 K/uL (0-0.4); EOSINOPHILS % (AUTO) 1.3 % (0.0-4.0); HEMATOCRIT 38.3 % (36-48); HEMOGLOBIN 13.2 g/dL (12.0-16.0); LYMPHOCYTES % (AUTO) 25.6 % (20.5-51.1); MEAN CORPUSCULAR HEMOGLOBIN 34 pg (27-31); MEAN CORPUSCULAR HGB CONC 34 g/dL (33-37); MEAN CORPUSCULAR VOLUME 99.7 fL (80-94); MONOCYTES # (AUTO) 0.9 K/uL (0.8-1.0); MONOCYTES % (AUTO) 7.9 % (1.7-9.3); NEUTROPHILS # (AUTO) 7.4 K/uL (1.8-7.7); NEUTROPHILS % (AUTO) 64.6 % (42.2-75.2); PLATELET COUNT (AUTO) 248 K/uL (140-450); RED BLOOD CELL COUNT(AUTO) 3.84 MIL/uL (4.20-5.40); RED CELL DISTRIBUTION WIDTH 11.7 % (11.6-13.7); WHITE BLOOD COUNT (AUTO) 11.5 K/uL (4.8-10.8)
[2023-05-28 17:36] LABS: APPEARANCE,URINE CLEAR (CLEAR); BILIRUBIN,URINE NEGATIVE (NEGATIVE); BLOOD, URINE 2+ (NEGATIVE); COLOR,URINE YELLOW (YELLOW); LEUKOCYTE ESTERASE ,URINE NEGATIVE (NEGATIVE); NITRITE, URINE NEGATIVE (NEGATIVE); PROTEIN,URINE NEGATIVE (NEGATIVE); UGLUCOSE NEGATIVE (NEGATIVE); UROBILINOGEN,URINE 0.2 EU/dL (0.2 - 1)
[2023-05-28 17:41] LABS: ANION GAP 12.8 (8-16); CREATININE 0.6 mg/dL (0.6-1.3); POTASSIUM 3.8 mmol/L (3.5-5.1)
[2023-05-28 17:57] LABS: ALBUMIN 3.7 g/dL (3.4-5.0); TOTAL BILIRUBIN 0.3 mg/dL (0.0-1.0)
[2023-05-28 19:13] VITALS: TEMP 97.8
[2023-05-28] MEDS ORDERED: ACETAMINOPHEN EXTRA STRENGTH 500 MG TAB ONE (19:27)
[2023-05-28] MEDS ORDERED: KETOROLAC 30 MG/ML VIAL ONE (19:28)
[2023-05-28] MEDS: ACETAMINOPHEN EXTRA STRENGTH 500 MG TAB PO ONE (19:31)
[2023-05-28] MEDS: KETOROLAC 30 MG/ML VIAL IVP ONE (19:31)
[2023-05-28] MEDS ORDERED: METR-520 PO (20:59)
[2023-05-28] MEDS ORDERED: CIPR500T4 PO (21:00)
[2023-05-28] MEDS ORDERED: ONDA-188 SL (21:01)
[2023-05-28] MEDS: metroNIDAZOLE 250 MG TAB PO ONE (21:13)
[2023-05-28] MEDS: CIPROFLOXACIN 250 MG TAB PO ONE (21:13)
[2023-05-28 21:14] VITALS: BP 126/73; PULSE 81; RESP 17; O2SAT 99
== END 2023-05-28 21:24 | disposition home or self-care (01) ==
LOC: MED 16:09
DX: K57.32 Diverticulitis of large intestine without perforation or abscess without bleeding (principal); D72.829 Elevated white blood cell count, unspecified; Z90.49 Acquired absence of other specified parts of digestive tract; Z98.890 Other specified postprocedural states; Z79.899 Other long term (current) drug therapy; Z88.0 Allergy status to penicillin
CPT/HCPCS: 36415; 74176; 80048; 80076; 81003; 81025; 82150; 83690; 85025; 96374; 99285; J1885